=== PATIENT | male | born 1990 | race African-American/Black ===

== ENCOUNTER 2017-09-03 12:51 | Emergency (ER) | payer SELFPAY ==
[~2017-09-03] VITALS: Ht 167.6 cm; Wt 93.0 kg
[2017-09-03] MEDS ORDERED: KETOROLAC 60MG/2ML VIAL IM STA (16:33)
[2017-09-03] MEDS ORDERED: ONDANSETRON HCL 4MG/2ML VIAL IV STA (16:33)
[2017-09-03 17:01] LABS: BASOPHILS % 0.5 % (0.0-2.0); EOSINOPHILS % 0.7 % (0.0-5.0); HEMATOCRIT. 48.2 % (42.0-52.0); LYMPHOCYTES % 19.1 % (20.0-50.0); MEAN CORPUSCULAR HEMOGLOBIN 26.1 pg (28.0-32.0); MEAN CORPUSCULAR VOLUME 78.7 fL (80.0-94.0); MEAN PLATELET VOLUME 8.7 fl (7.4-10.4); MONOCYTES % 11.8 % (2.0-8.0); NEUTROPHILS % 67.9 % (40.0-76.0); PLATELET 296 x1000/uL (130-400); RED BLOOD CELL COUNT 6.12 mill/uL (4.7-6.1); RED CELL DISTRIBUTION WIDTH 13.4 % (11.6-14.6)
[2017-09-03 17:05] LABS: CHLORIDE 103 mEq/L (98-107)
[2017-09-03 17:08] LABS: INR 1.1; PROTHROMBIN TIME 11.2 sec (9.4-11.6)
[2017-09-03 17:16] LABS: CARBON DIOXIDE 26 mEq/L (21-32)
[2017-09-03 17:53] LABS: CLARITY URINE CLEAR (CLEAR); COLOR URINE YELLOW (YELLOW); GLUCOSE URINE NEGATIVE (NEGATIVE); KETONES URINE 2+ (NEGATIVE); LEUKOCYTE ESTERASE URINE NEGATIVE (NEGATIVE); NITRITE URINE NEGATIVE (NEGATIVE); OCCULT BLOOD URINE NEGATIVE (NEGATIVE); PROTEIN URINE NEGATIVE (NEGATIVE); SPECIFIC GRAVITY URINE 1.023 (1.005-1.030); UROBILINOGEN URINE 0.2 E.U./dL (0.2-1.0)
[2017-09-03] MEDS ORDERED: ONDANSETRON 4MG ODT PO ONE (22:30)
[2017-09-03 22:44] VITALS: BP 120/76
== END 2017-09-03 22:50 | disposition home or self-care (01) ==
LOC: ER 13:10
DX: I88.0 Nonspecific mesenteric lymphadenitis (principal); K52.9 Noninfective gastroenteritis and colitis, unspecified
CPT/HCPCS: 36415; 74176; 80053; 81003; 82962; 83690; 85025; 85610; 96372; 96374; 99285; J1885; J2405; Q0162; Z7610

== ENCOUNTER 2017-12-24 23:58 | Emergency (ER) | payer MEDICAID ==
[~2017-12-24] VITALS: Ht 170.2 cm; Wt 88.0 kg
[2017-12-25] MEDS ORDERED: IBUPROFEN 800MG TABLET PO ONE (00:45)
[2017-12-25 01:08] VITALS: BP 119/68
== END 2017-12-25 01:11 | disposition home or self-care (01) ==
LOC: ER 23:58
DX: M27.69 Other endosseous dental implant failure (principal)
CPT/HCPCS: 99283